=== PATIENT | female | born 1975 | race Caucasian/White ===

== ENCOUNTER 2023-09-05 06:59 | Day surgery (SDC) | payer BC ==
[~2023-09-05] VITALS: Ht 177.8 cm; Wt 90.7 kg
[2023-09-05] MEDS ORDERED: MEPERIDINE 100 MG INJ. 100 MG/ML VIAL ONE (07:39)
[2023-09-05] MEDS ORDERED: MIDAZOLAM HCL 5 MG/5 ML VIAL ONE ×2 (07:39→09:35)
[2023-09-05 08:40] LABS: HCG,QUAL RESULT NEGATIVE (NEGATIVE)
[2023-09-05] MEDS ORDERED: fentaNYL CITRATE/PF 100 MCG/2 ML AMP ONE ×2 (09:23→09:35)
[2023-09-05] MEDS ORDERED: DIPHENHYDRAMINE INJ 50 MG/ML VIAL ONE (09:31)
[2023-09-05 15:40] VITALS: O2SAT 100
[2023-09-05 17:25] VITALS: BP_SYST 130; PULSE 80; RESP 19
== END 2023-09-05 11:11 | disposition home or self-care (01) ==
LOC: SDS 06:59 → SMU 07:03 → SDS 11:11
PROVIDERS: ATTEND Internal Medicine Gastroenterology
DX: R19.4 Change in bowel habit (principal); K63.5 Polyp of colon; K62.5 Hemorrhage of anus and rectum; K63.89 Other specified diseases of intestine; K64.8 Other hemorrhoids; I10 Essential (primary) hypertension; K21.9 Gastro-esophageal reflux disease without esophagitis; I25.2 Old myocardial infarction; Z88.0 Allergy status to penicillin; Z98.890 Other specified postprocedural states; Z79.899 Other long term (current) drug therapy; Z86.010 Personal history of colon polyps; Z80.0 Family history of malignant neoplasm of digestive organs
CPT/HCPCS: 45385; 99152; 84703; 88305; 99153; G0378; J1200; J2250; J3010; J2175